=== PATIENT | male | born 1950 | race Caucasian/White ===

== ENCOUNTER 2017-06-26 12:42 | Outpatient (CLI) | payer OTHER ==
[~2017-06-26 12:42] MED LIST: COUMADIN1 MG; LOSARTAN POTASS50 MG
== END 2017-06-26 12:46 | disposition home or self-care (01) ==
LOC: RAD 12:42
DX: M25.562 Pain in left knee (principal)

== ENCOUNTER → 2017-11-16 13:29 | Outpatient (CLI) | payer OTHER | END | disposition home or self-care (01) | LOC: LAB 13:29 | DX: D68.59 Other primary thrombophilia (principal); Z79.01 Long term (current) use of anticoagulants ==

== ENCOUNTER 2017-12-07 12:33 | Outpatient (CLI) | payer OTHER | END 2017-12-07 12:42 | disposition home or self-care (01) | LOC: LAB 12:33 | DX: D68.59 Other primary thrombophilia (principal) ==

== ENCOUNTER → 2017-12-09 | Outpatient (CLI) | payer OTHER | END | disposition home or self-care (01) | LOC: LAB 12:40 | DX: D68.8 Other specified coagulation defects (principal); Z79.01 Long term (current) use of anticoagulants ==

== ENCOUNTER 2017-12-16 10:46 | Outpatient (CLI) | payer OTHER | END 2017-12-16 10:53 | disposition home or self-care (01) | LOC: SONOGRAMA 10:46 | DX: R31.9 Hematuria, unspecified (principal) ==

== ENCOUNTER 2017-12-20 15:22 | Outpatient (CLI) | payer OTHER | END 2017-12-20 15:30 | disposition home or self-care (01) | LOC: LAB 15:22 | DX: Z79.01 Long term (current) use of anticoagulants (principal); D68.59 Other primary thrombophilia ==

== ENCOUNTER 2018-01-08 10:38 | Outpatient (CLI) | payer OTHER ==
[~2018-01-08] VITALS: Ht 182.9 cm; Wt 86.2 kg
[2018-01-08] MEDS ORDERED: MEDROL4 MG PO (12:24)
[2018-01-08] MEDS ORDERED: CEFUROXIME500 MG PO (12:24)
[2018-01-08] MEDS ORDERED: AYR SALINE NA14.1 GM NASAL (12:24)
== END 2018-01-08 11:00 | disposition home or self-care (01) ==
LOC: OFIC 805 10:38
DX: J32.8 Other chronic sinusitis (principal); R04.0 Epistaxis; J33.8 Other polyp of sinus; H90.3 Sensorineural hearing loss, bilateral

== ENCOUNTER 2018-02-16 15:12 | Emergency (ER) | payer OTHER ==
[~2018-02-16] VITALS: Ht 182.9 cm; Wt 81.6 kg
[~2018-02-16 15:12] MED LIST changes: +AYR SALINE NA14.1 GM NASAL; +CEFUROXIME500 MG PO; +MEDROL4 MG PO
== END 2018-02-16 17:13 | disposition home or self-care (01) ==
LOC: ER 15:12
DX: R07.89 Other chest pain (principal)

== ENCOUNTER 2018-02-24 10:33 | Outpatient (CLI) | payer OTHER | END 2018-02-24 10:55 | disposition home or self-care (01) | LOC: LAB 10:33 | DX: E03.8 Other specified hypothyroidism (principal); D68.59 Other primary thrombophilia; E55.9 Vitamin D deficiency, unspecified; E53.8 Deficiency of other specified B group vitamins; D68.69 Other thrombophilia ==

== ENCOUNTER 2018-03-03 13:50 | Outpatient (CLI) | payer OTHER | END 2018-03-03 14:01 | disposition home or self-care (01) | LOC: NUCLEAR 13:50 | DX: I27.89 Other specified pulmonary heart diseases (principal); R94.31 Abnormal electrocardiogram [ECG] [EKG]; D68.59 Other primary thrombophilia; Z79.01 Long term (current) use of anticoagulants ==

== ENCOUNTER → 2018-11-24 | Outpatient (CLI) | payer OTHER | END | disposition home or self-care (01) | LOC: RAD 12:06 | DX: M12.571 Traumatic arthropathy, right ankle and foot (principal) ==

== ENCOUNTER 2018-12-01 11:23 | Outpatient (CLI) | payer OTHER | END 2018-12-01 11:27 | disposition home or self-care (01) | LOC: NUCLEAR 11:23 | DX: I87.001 Postthrombotic syndrome without complications of right lower extremity (principal); I87.2 Venous insufficiency (chronic) (peripheral) ==

== ENCOUNTER 2019-11-10 14:00 | Outpatient (CLI) | payer OTHER | END 2019-11-10 14:02 | disposition home or self-care (01) | LOC: SONOGRAMA 14:00 → MAMO-SONO 14:40 | PROVIDERS: ATTEND Internal Medicine Cardiovascular Disease | DX: Z12.39 Encounter for other screening for malignant neoplasm of breast (principal); N64.59 Other signs and symptoms in breast; N64.4 Mastodynia ==

== ENCOUNTER 2020-02-29 11:52 | Inpatient (IN) | payer OTHER ==
[~2020-02-29] VITALS: Ht 185.4 cm; Wt 85.7 kg
--- NOTE | 2020-02-29 12:04 | NUR ---
PACIENTE ALERTA, CONCIENTE Y ORIENTADA X3 LLEGA A FERNANDO POR DOLOR DE PECHO DESDE HACE MEDIA HORA , AL MOMENTO EL MISMO REFIERE QUE NO TIENE DOLOR DE PECHO , REFIERE MAREO, SE TOMARON SIGNOS VITALES, SE REALIZO EKG.
--- NOTE | 2020-02-29 13:28 | NUR ---
SE RECIBE DE AREA DE TRIAGE,MASCULINO DE 70 ANOS,TRASLADADO A UNIDAD DE CHEST PAIN,UBICADO EN CAMA #[id number]. PACIENTE ALERTA,ORIENTADO EN ANGEL JAKE ESFERAS,DESCANSANDO EN CAMA NIVEL MAS BAJO CON BARANDAS ELEVADAS,FRENOS,FRANCOIS DE IDENTIFICACION COLOCADOS POR SEGURIDAD. CONECTADO A MONITOIR CARDIACO,OXIMETRIA DE PULSO CONTINUA, SATURANDO AL 99% PACIENTE REFIERE VENIR A ER POR DOLOR DE PECHO DESDE HACE MEDIA HORA, DIFICULTAD RESPIRATORIA LAS CUALES YA NO ESTAN PRESENTE, REFIERE. EVALUADO POR MD EN TURNO QUIEN ORIENTA PACIENTE SOBRE TRATAMIENTO A RECIBIR. REFIERE COMPRENDER. SE COLECTAN MUESTRAS DE LABORATORIOS, SE ROTULAN Y ENVIAN PARA ANALISIS. SE ADMINISTRA MEDICAMENTO MARICRUZ ORDEN MEDICA, BAJO MEDIDAS ASEPTICAS. PACIENTE NO PRESENTA REACCION ADVERSA. SE NOTIFICA ESTUDIO PLACA DE PECHO PORTABLE A PERSONAL EN TURNO. SE MANTIENE BAJO OBSERVACION POR CAMBIOS EN CONDICION. PACIENTE ESTABLE AL MOMENTO.
--- NOTE | 2020-02-29 15:19 | NUR ---
PACIENTE ALERTA Y ORIENTADO EN ANGEL JAKE ESFERAS, PRESENTA BUEN PATRON RESPIRATORIO Y CELIA DE DOLOR. CONECTADO A MONITOR CARDIACO PRESENTANDO RITMO SINOSAL, SPO2 100% CON CANULA NASAL A 2 LT. PENDIENTE 2DA TROPONINA PARA RE EVALUACION MEDICA.
[2020-03-03] MEDS ORDERED: WARFARIN SODIUM5 MG (16:30)
== END 2020-03-04 16:48 | disposition left against medical advice (07) | DRG 282 ==
LOC: ER 11:52 → MEDJ 21:14 → MEDI 21:14 → SURH 21:14 → SEC-K 21:57 → MEDJ 03-01 05:51 → MEDI 03-02 17:15
PROVIDERS: ADMIT Internal Medicine; ATTEND Internal Medicine
PROC: 4A033R1 Measurement of Arterial Saturation, Peripheral, Percutaneous Approach (ICD-10-PCS; 2020-02-29)
PROC: B24BZZZ Ultrasonography of Heart with Aorta (ICD-10-PCS; 2020-03-01)
PROC: 4A12X4Z Monitoring of Cardiac Electrical Activity, External Approach (ICD-10-PCS; principal; 2020-03-03)
PROC: CB2YYZZ Tomographic (Tomo) Nuclear Medicine Imaging of Respiratory System using Other Radionuclide (ICD-10-PCS; 2020-03-03)
PROC: 4A02XM4 Measurement of Cardiac Total Activity, External Approach (ICD-10-PCS; 2020-03-03)
PROC: 3E073KZ Introduction of Other Diagnostic Substance into Coronary Artery, Percutaneous Approach (ICD-10-PCS; 2020-03-03)
DX: I21.4 Non-ST elevation (NSTEMI) myocardial infarction (principal); E11.9 Type 2 diabetes mellitus without complications; I10 Essential (primary) hypertension; Z79.01 Long term (current) use of anticoagulants; Z20.828 Contact with and (suspected) exposure to other viral communicable diseases; Z86.711 Personal history of pulmonary embolism

== ENCOUNTER → 2020-06-22 15:50 | Outpatient (CLI) | payer OTHER ==
[~2020-06-22 15:50] MED LIST changes: +WARFARIN SODIUM5 MG
== END | disposition home or self-care (01) ==
LOC: LAB 06-21 09:58
PROVIDERS: ATTEND Internal Medicine Hematology & Oncology
DX: I26.99 Other pulmonary embolism without acute cor pulmonale (principal); I80.221 Phlebitis and thrombophlebitis of right popliteal vein; I10 Essential (primary) hypertension; Z72.0 Tobacco use; Z86.711 Personal history of pulmonary embolism

== ENCOUNTER 2020-11-22 14:57 | Outpatient (CLI) | payer OTHER | END 2020-11-22 15:07 | disposition home or self-care (01) | LOC: MAMO-SONO 14:57 | PROVIDERS: ATTEND Obstetrics & Gynecology | DX: N60.11 Diffuse cystic mastopathy of right breast (principal); N60.12 Diffuse cystic mastopathy of left breast; Z12.31 Encounter for screening mammogram for malignant neoplasm of breast; Z87.898 Personal history of other specified conditions ==

== ENCOUNTER 2021-09-12 10:44 | Outpatient (CLI) | payer OTHER | END 2021-09-12 10:53 | disposition home or self-care (01) | LOC: TOM 10:44 | PROVIDERS: ATTEND Family Medicine | DX: J20.9 Acute bronchitis, unspecified (principal); Z20.822 Contact with and (suspected) exposure to COVID-19 ==

== ENCOUNTER 2022-06-13 15:36 | Inpatient (IN) | payer OTHER ==
[~2022-06-13] VITALS: Ht 182.9 cm; Wt 81.6 kg
--- NOTE | 2022-06-13 15:51 | NUR ---
PACIENTE ALERTA Y ORIENTADO X3. REFIERE QUE SE TATI DE JHOAN KAELYN EN CHAR POR LA NOCHE. REFIERE DOLOR EN TALBERT CADERA DERECHO Y QUE NO PUEDE CAMINAR.
[2022-06-13] MEDS ORDERED: METFORMIN HCL500 M1 PO (15:52)
[2022-06-13] MEDS ORDERED: ATORVASTATIN CA20 MG PO (15:52)
--- NOTE | 2022-06-13 17:38 | NUR ---
SE BUSCA PACIENTE Y SE LLAMA EN VARIAS OCASIONES Y NO SE EMCUENTRA
== END 2022-07-04 22:02 | disposition home or self-care (01) | DRG 482 ==
LOC: ER 15:36 → SURG 18:59 → SEC-K 18:59 → SURG 06-14 00:28
PROVIDERS: Orthopaedic Surgery; ADMIT Internal Medicine; ATTEND Internal Medicine
PROC: B24BZZZ Ultrasonography of Heart with Aorta (ICD-10-PCS; 2022-06-15)
PROC: 0QS604Z Reposition Right Upper Femur with Internal Fixation Device, Open Approach (ICD-10-PCS; principal; 2022-06-15 13:00)
DX: S72.001A Fracture of unspecified part of neck of right femur, initial encounter for closed fracture (principal); W10.9XXA Fall (on) (from) unspecified stairs and steps, initial encounter; Y93.01 Activity, walking, marching and hiking; I10 Essential (primary) hypertension; Z15.89 Genetic susceptibility to other disease; E78.5 Hyperlipidemia, unspecified; F43.20 Adjustment disorder, unspecified; Z20.822 Contact with and (suspected) exposure to COVID-19; E11.9 Type 2 diabetes mellitus without complications; Z79.4 Long term (current) use of insulin; I48.91 Unspecified atrial fibrillation

== ENCOUNTER 2022-07-19 14:50 | Outpatient (CLI) | payer OTHER ==
[~2022-07-19 14:50] MED LIST changes: +ATORVASTATIN CA20 MG PO; +METFORMIN HCL500 M1 PO
== END 2022-07-19 14:59 | disposition home or self-care (01) ==
LOC: RAD 14:50
PROVIDERS: ATTEND Orthopaedic Surgery
DX: S72.034A Nondisplaced midcervical fracture of right femur, initial encounter for closed fracture (principal)

== ENCOUNTER 2022-07-26 15:27 | Outpatient (CLI) | payer OTHER | END 2022-07-26 15:36 | disposition home or self-care (01) | LOC: RAD 15:27 | PROVIDERS: ATTEND Orthopaedic Surgery | DX: S72.034D Nondisplaced midcervical fracture of right femur, subsequent encounter for closed fracture with routine healing (principal) ==

== ENCOUNTER 2023-07-25 15:53 | Outpatient (CLI) | payer OTHER | END 2023-07-25 15:58 | disposition home or self-care (01) | LOC: RAD 15:53 | PROVIDERS: ATTEND Physical Medicine & Rehabilitation | DX: M16.11 Unilateral primary osteoarthritis, right hip (principal); M25.30 Other instability, unspecified joint; W19.XXXA Unspecified fall, initial encounter; M54.6 Pain in thoracic spine ==

== ENCOUNTER 2024-07-17 12:33 | Outpatient (CLI) | payer OTHER | END 2024-07-17 12:36 | disposition home or self-care (01) | LOC: RAD 12:33 | DX: J18.9 Pneumonia, unspecified organism (principal) ==

== ENCOUNTER → 2024-10-22 | Outpatient (CLI) | payer OTHER | END | disposition home or self-care (01) | LOC: RAD 16:14 | DX: M25.551 Pain in right hip (principal) ==

== ENCOUNTER 2025-02-16 00:29 | Emergency (ER) | payer OTHER ==
[~2025-02-16] VITALS: Ht 167.6 cm; Wt 77.1 kg
[2025-02-16 01:36] LABS: ALT/SGPT 28.0 U/L (12-78); AST/SGOT 44.0 U/L (15-37); BASO % 0.8 % (0.1-1.2); BILIRUBIN TOTAL 0.29 mg/dL (0.3-1.2); BUN CREA RATIO 12.0 (7.0-25.0); CREATININE SERUM 0.76 mg/dL (0.70-1.30); EOS # 0.12 (0.04-0.54); EOS % 1.4 % (0.7-7.0); GFR 100.26; GLOBULINA 4.0 G/DL (2.4-3.5); GLUCOSE FASTING 107.0 mg/dL (65-100); LYMPH # 2.92 (1.18-3.74); LYMPH % 33.5 % (19.3-53.1); MEAN PLATELET VOLUME 8.90 fl (9.4-12.4); MONO # 0.93 (0.24-0.82); MONO % 10.7 % (4.7-12.5); NEUT # 4.54 (1.56-6.13); NEUT % 52.0 % (34.0-71.1); OSMOLALITY SERUM 286.0 MOSM/KG (275-295); RED CELL DISTRIBUTION WIDTH 15.5 % (11.6-14.4)
[2025-02-16 01:38] LABS: INR 3.98
[2025-02-16] MEDS ORDERED: LIDOCAINE HCL 1% 10ML VIAL ONE (03:06)
[2025-02-16] MEDS ORDERED: HYDROGEN PEROXIDE 473 ML BOTTLE TOP ONE (03:11)
[2025-02-16] MEDS ORDERED: POVIDONE-IODINE 118 ML BOTT TOP ONE (03:11)
== END 2025-02-16 04:08 | disposition home or self-care (01) ==
LOC: ER
PROVIDERS: Physician Assistant Medical
DX: S01.111A Laceration without foreign body of right eyelid and periocular area, initial encounter (principal); W19.XXXA Unspecified fall, initial encounter; Y93.89 Activity, other specified; Y92.89 Other specified places as the place of occurrence of the external cause; Y99.8 Other external cause status; I10 Essential (primary) hypertension; E11.9 Type 2 diabetes mellitus without complications; Z79.84 Long term (current) use of oral hypoglycemic drugs

== ENCOUNTER 2025-02-24 16:39 | Emergency (ER) | payer OTHER ==
[~2025-02-24] VITALS: Ht 182.9 cm; Wt 81.2 kg
[2025-02-24 18:17] VITALS: BP 126/73; O2SAT 98
== END 2025-02-24 18:18 | disposition home or self-care (01) ==
LOC: ER 16:39
DX: Z48.02 Encounter for removal of sutures (principal)